=== PATIENT | female | born 1940 | race Caucasian/White ===

== ENCOUNTER → 2017-01-08 | Outpatient (CLI) | payer MEDICARE ==
[~2017-01-08] MED LIST: CITALOPRAM20 M1 PO; DAILY VITE1 TA2 PO; LORTAB 5/500 501 TAB PO; PRAVACHOL40 MG PO; SKELAXIN400 MG PO; ZOLPIDEM 10MG T10 MG PO
--- NOTE | 2017-01-08 15:52 | RADIOLOGY REPORT PS360 ---
LUMBAR SPINE 5 VIEWS HISTORY: LOW BACK PAIN Patient Age: 76 years: Female Ordering Physician: Mk Sutton MD TECHNIQUE: 5 view lumbar spine series COMPARISON :None FINDINGS There are degenerative disc space narrowing most pronounced at L4/5 and L5/S1 with vacuum phenomena & spondylosis at each of these levels. L4/5. Degenerative disc space narrowing most evident to the right. Marginal osteophytes seen throughout the L-spine. A degenerative facet throughout the L-spine most evident at L3/4 and L5/S1 most likely. No acute compression fractures. Slight superior endplate cavity at L2 most likely reflects Schmorl's node. And appears be old feature. No listhesis. Diffuse demineralization. Mild degenerative changes superior hip joints bilateral. IMPRESSION Degenerative changes of the lumbar spine. Degenerative disc space narrowing L4/5 and L5/S1 most notable . Generous marginal osteophytes, throughout the lower L-spine
== END ==
LOC: RAD 10:36
DX: M54.5 Low back pain (principal)